=== PATIENT | male | born 1985 | race Caucasian/White ===

== ENCOUNTER 2023-05-14 00:44 | Emergency (ER) | payer SELFPAY ==
[2023-05-14 00:59] VITALS: PULSE 99; RESP 18
== END 2023-05-14 03:05 | disposition left against medical advice (07) ==
LOC: ER 00:44
DX: L02.91 Cutaneous abscess, unspecified (principal); Z53.21 Procedure and treatment not carried out due to patient leaving prior to being seen by health care provider
CPT/HCPCS: 99281